=== PATIENT | male | born 1935 | race Caucasian/White ===

== ENCOUNTER → 2018-06-15 | Outpatient (CLI) | payer MEDICARE | LOC: M RAD 13:00 | DX: I87.312 Chronic venous hypertension (idiopathic) with ulcer of left lower extremity (principal); L97.329 Non-pressure chronic ulcer of left ankle with unspecified severity; I70.243 Atherosclerosis of native arteries of left leg with ulceration of ankle; I77.1 Stricture of artery | CPT/HCPCS: 93926 ==

== ENCOUNTER → 2018-09-14 | Outpatient (CLI) | payer MEDICARE ==
[~2018-09-14] MED LIST: HEPARIN 1,000 UNITS/ML 10ML VIAL (FOR RADIOLOGY& DIALYSIS ONLY) As Ordered; ISOVUE-300 61% 50ML VIAL (Q9967) As Ordered; LIDOCAINE 2% MDV 20 ML VIAL As Ordered; MIDAZOLAM INJ 2 MG/2 ML VIAL (J2250) As Ordered; fentaNYL 100 MCG/2 ML INJECTION (J3010) As Ordered
== END | disposition home or self-care (01) ==
LOC: M IRPRO 06:23
DX: I70.293 Other atherosclerosis of native arteries of extremities, bilateral legs (principal); I13.0 Hypertensive heart and chronic kidney disease with heart failure and stage 1 through stage 4 chronic kidney disease, or unspecified chronic kidney disease; N18.9 Chronic kidney disease, unspecified; I50.9 Heart failure, unspecified; I25.10 Atherosclerotic heart disease of native coronary artery without angina pectoris; J44.9 Chronic obstructive pulmonary disease, unspecified; Z87.891 Personal history of nicotine dependence
CPT/HCPCS: 36247

== ENCOUNTER → 2019-05-09 | Outpatient (CLI) | payer MEDICARE ==
--- NOTE | 2019-05-09 10:15 | REP ---
Clinical: Left lower extremity chronic ulceration. Technique: Green scale and color Doppler evaluation using linear high frequency transducer with reflux evaluation. Findings: Ultrasound examination of the left lower extremity deep venous structures from the common femoral vein to the popliteal vein demonstrates normal compressibility flow and wave patterns in response to respiration and augmentation. There is no evidence for deep venous thrombosis. Diffuse subcutaneous edema noted. On standing evaluation, mild reflux was noted through the popliteal vein. Remainder examination was within normal limits and without further reflux through the deep or superficial venous structures. Impression: 1. No evidence for deep venous thrombosis. 2. Significant subcutaneous edema. 3. No significant reflux. As above. Electronically Signed by Torey Flores MD 05/09/2019 10:06 A
== END ==
LOC: M RAD 08:44
PROVIDERS: ATTEND Surgery
DX: L97.822 Non-pressure chronic ulcer of other part of left lower leg with fat layer exposed (principal)

== ENCOUNTER → 2019-06-13 | Outpatient (REF) | LOC: M LAB LCGH 15:49 | PROVIDERS: ATTEND Surgery | DX: D12.0 Benign neoplasm of cecum (principal) ==

== ENCOUNTER → 2019-07-12 | Outpatient (CLI) | payer MEDICARE ==
[~2019-07-12] MED LIST changes: +ANOR1AER PO; +ASPI81TA85 PO; +AVAP150T31 PO; +AZIT-12 PO; +BISO5TAB9 PO; +ELIQ2.5T PO; +FINA5TAB2 PO; +FLOM0.4C39 PO; +FURO40TA2 PO; -HEPARIN 1,000 UNITS/ML 10ML VIAL (FOR RADIOLOGY& DIALYSIS ONLY) As Ordered; +HEPARIN 1,000 UNITS/ML 10ML VIAL (FOR RADIOLOGY& DIALYSIS ONLY) As Ordered ONE; +IPRA0.00 NEB; -ISOVUE-300 61% 50ML VIAL (Q9967) As Ordered; +ISOVUE-300 61% 50ML VIAL (Q9967) As Ordered ONE; +LEVE250T5 PO; -LIDOCAINE 2% MDV 20 ML VIAL As Ordered; +LIDOCAINE 2% MDV 20 ML VIAL As Ordered ONE; +LYRI200C PO; -MIDAZOLAM INJ 2 MG/2 ML VIAL (J2250) As Ordered; +MIDAZOLAM INJ 2 MG/2 ML VIAL (J2250) As Ordered ONE; +MOBI4TAB PO; +NEXI40CA PO; +QVAR80AE8 INH; +SIMV40TA2 PO; +SPIR1CAP INH; +VENTAER INH; +diphenhydrAMINE INJ 50MG/ML VIAL (J1200) As Ordered ONE; -fentaNYL 100 MCG/2 ML INJECTION (J3010) As Ordered; +fentaNYL 100 MCG/2 ML INJECTION (J3010) As Ordered ONE
[2019-07-12 09:10] LABS: HEMATOCRIT 32.2 % (42.0-52.0); HEMOGLOBIN 10.2 g/dl (13.5-17.5); MEAN CORPUSCULAR HEMOGLOBIN 27.1 pg (27.0-33.0); MEAN CORPUSCULAR HGB CONC 31.7 g/dl (32.0-36.5); MEAN CORPUSCULAR VOLUME 85.6 fl (80.0-96.0); PLATELET COUNT, AUTOMATED 118 10^3/uL (150-450); RED BLOOD COUNT 3.76 10^6/uL (4.30-6.10); WHITE BLOOD COUNT 10.2 10^3/uL (4.0-10.0)
[2019-07-12 09:48] LABS: CALCIUM LEVEL 8.5 MG/DL (8.8-10.2); CREATININE FOR GFR 1.51 MG/DL (0.70-1.30); GLOMERULAR FILTRATION RATE 47.3 (>35); POTASSIUM SERUM 4.5 MEQ/L (3.5-5.1)
--- NOTE | 2019-07-12 12:41 | ROOPDOC ---
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 US guided access right common femoral artery 2. Arteriogram left lower extremity and selection popliteal artery and anterior tibial artery 3. Angioplasty left common femoral artery and superficial femoral artery with 6 x 200 Rexford balloon 4. Angioplasty left popliteal artery with 6 x 200 Rexford balloon 5. 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 Stenting of the left superficial femoral artery with two 7 x 100 Innova stents and post-dilation was 6 x 200 Rexford balloon 7. Completion arteriograms left lower extremity 8. Minx closure right common femoral artery SURGEON: Susan Millan MD ANESTHESIA: 10 mL 1% lidocaine local anesthesia. Moderate intravenous conscious sedation was supervised by Dr. Millan. The patient was independently monitored by registered nurse assigned to the Department of radiology using automated blood pressure, EKG, and pulse oximetry. The detailed conscious sedation record is permanently stored in the hospital information system. Following is the conscious sedation record: Start time 09:47, stop time 11:35, fentanyl 75 g IV, Versed 0.5 mg IV. The patient tolerated the sedation well with no complications. He was taken to recovery following the procedure in stable condition. CONTRAST: Isovue-300, 38 mL. HEPARIN: 5000 units IV INDICATION FOR PROCEDURE: Mr. 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 He also suffers from pain at rest with his leg elevated, and therefore keeps it in a dependent position most of the time, which makes his venous stasis and swelling worse. I reviewed his noninvasive arterial study and his arteriogram done by Dr. Murphy. The patient I had a long discussion about combined arterial and venous disease, and the need to improve arterial flow in order that he may tolerate better compression and more frequent lower extremity elevation. Risks benefits and alternatives to a left lower extremity arteriogram and potential intervention were explained to the patient and he is agreeable to proceed. Informed consent was obtained. INTERPRETATION: 1. The left common femoral artery has heavy mixed soft and calcified plaque in the mid distal portion. The profunda is patent, and there is diffuse plaque with intermittent stenoses ranging from 30-70% throughout the SFA. The popliteal artery has a 90% focal stenosis and some diffuse disease proximal to that. There is 3 vessel runoff through a true trifurcation, with the primary flow to the foot through the posterior tibial artery, but a patent peroneal. The anterior tibial artery is patent proximally, then occludes for 5 cm, and then reconstituted through collateral circulation and runs off distally into the dorsal pedis artery. 2. Angioplasty of the left common femoral artery and SFA with a 6 x 200 Rexford made a mild improvement inflow through the vessel, but there is still bulky irregular plaque at the edges. No dissection, extravasation, or embolization noted. There is adequate inflow through the common femoral artery, although a femoral endarterectomy would provide the best inflow, the patient is a suboptimal open surgical candidate. The flow through the SFA still felt a bit turbulent due to all the irregular plaque, and therefore two 7 x 100 Innova stents were placed from just proximal to Villa's canal to just distal to the takeoff of the profunda. There was widely patent flow through the SFA unobstructed after post-dilation with a 6 x 200 Rexford balloon. 3. The anterior tibial artery occlusion was crossed, and we were able to open t he occlusion with a 2.5 x 200 Margarito balloon angioplasty. No significant residual stenosis was noted after angioplasty. This provided 3 vessel runoff to the foot. PROCEDURE: The patient was brought to the angiographic suite in stable condition and placed supine on the fluoroscopic table. His bilateral groins were prepped and draped in a sterile fashion. A timeout was performed. Sedation was administered without complication. Ultrasound was used to guide access to the right common femoral artery with a microneedle, and a wire was passed through this access and a micro-sheath was placed. A Glidewire was passed through the sheath into the distal aorta under fluoroscopic guidance and the sheath was exchanged for a short 6 Bangladeshi sheath, and this was flushed with heparinized saline. 5000 units of heparin was given IV. We went up and over the bifurcation with a Glidewire and an Omni flushed catheter, and exchanged R sheath for 45 cm destination sheath over the wire. The sheath was flushed with heparinized saline . Next, we advanced her Glidewire into the superficial femoral artery under fluoroscopic guidance. A few quick images were taken of the common femoral artery and proximal SFA. Although the common femoral artery is about 7-8 mm, we selected a 6 x 200 Rexford balloon. This is the correct sizing for the SFA, and small for the common femoral, but it will allow us to create a central lumen through the bulky plaque. We are hopeful this will improve the femoral inflow somewhat, but we are where it will not completely smooth out the plaque in the common femoral. Ideally, the patient would have a left common femoral endarterectomy, but he is not an optimal open surgical candidate for many reasons. A three-minute inflation was done, and then we advanced the balloon th rough the mid distal SFA proximal popliteal artery and another three-minute inflation was performed at low atmospheres. Before removing the balloon, we removed the wire and use the balloon is a catheter to image the popliteal artery and tibials. Injection of contrast showed a focal 90-95% stenosis of the mid popliteal artery with irregular plaque proximal to this, as well as short segment occlusion of the proximal mid anterior tibial artery. We then removed the balloon and a proximal arteriogram showed there is still bulky plaque in the common femoral artery as expected, but no hang-ups with flow, and still some irregular plaques in the wall of the SFA throughout, with a focal ball of plaque just proximal to Villa's canal. Repeat angioplasty did not improve this, so we selected a 7 x 100 Innova stent and deployed this distally and then deployed a second 7 x 100 Innova stent with a 1 cm overlap landing this 5 cm distal to the origin of the profunda. We post-dilated this with the 6 x 200 balloon and there was a marked improvement inflow through the SFA. A three-minute angioplasty was performed across the popliteal artery with excellent post angioplasty results on arteriogram. No significant residual stenosis was present. No embolization dissection or extravasation was noted. We then advanced R Glidewire into the anterior tibial artery and he utilized a glide cath over the wire to cross the occlusion in the anterior tibial artery. A quick injection of contrast confirmed we were in the true lumen. We then exchange the wire for an O18 wire and angioplastied for three-minute inflation with a 2.5 x 200 Margarito balloon. Following this, the anterior tibial had some mild wall plaque present, but no significant focal stenosis and there was 3 vessel flow through the tibials to the foot. No extravasation dissection or embolization was noted. This then concluded our procedure. We exchange the sheath over the wire for short 6 Bangladeshi sheath and deployed it makes closure device in the right common femoral artery under fluoroscopic guidance. Good hemostasis was noted. Pressure was held for 10 minutes and the patient was taken to recovery in stable condition. ESTIMATED BLOOD LOSS: Approximately 5 mL. COMPLICATIONS: None PLAN: We are hopeful that with improved flow to the left lower extremity, the patient will no longer have to dangle his foot to improve blood flow and can elevated more consistently to help with venous return and swelling. Additionally, we're hopeful he will be able to tolerate more significant compression, possibly an Unna boot, to help with healing of his chronic venous stasis ulcerations. We plan to see him back in clinic and we will obtain a new arterial noninvasive duplex in a month for a new baseline of arterial flow postprocedure. I have discussed this with the patient and his family and they are agreeable. All questions were answered. He should continue his excellent wound care at the wound care center with Dr. Balbuena. It is okay to restart the Eliquis tonight and resume all home medications. SUSAN MILLAN MD Jul 12, 2019 12:41
[2019-07-12 15:10] VITALS: BP 110/76
== END ==
LOC: M IRPRO 08:23
PROVIDERS: ATTEND Surgery Vascular Surgery
DX: I70.242 Atherosclerosis of native arteries of left leg with ulceration of calf (principal); I70.243 Atherosclerosis of native arteries of left leg with ulceration of ankle; I70.222 Atherosclerosis of native arteries of extremities with rest pain, left leg; I11.0 Hypertensive heart disease with heart failure; I25.10 Atherosclerotic heart disease of native coronary artery without angina pectoris; I50.9 Heart failure, unspecified; G40.909 Epilepsy, unspecified, not intractable, without status epilepticus; K22.70 Barrett's esophagus without dysplasia; K21.9 Gastro-esophageal reflux disease without esophagitis; M54.2 Cervicalgia; J41.0 Simple chronic bronchitis; E78.5 Hyperlipidemia, unspecified; Z88.8 Allergy status to other drugs, medicaments and biological substances; Z79.899 Other long term (current) drug therapy; Z79.01 Long term (current) use of anticoagulants; Z79.82 Long term (current) use of aspirin
CPT/HCPCS: 37226; 37228; 80048; 85027; C1725; C1760; C1769; C1876; C1887; C1894; J2250; J3010; Q9967